=== PATIENT | male | born 1995 | race Caucasian/White ===

== ENCOUNTER 2020-06-17 06:53 | Emergency (ER) | payer MEDICAID ==
[~2020-06-17] VITALS: Ht 177.8 cm; Wt 75.0 kg
[2020-06-17] MEDS ORDERED: KETOROLAC TROMETHAMINE 30 MG/ML VIAL IVP ONE (07:30)
[2020-06-17] MEDS ORDERED: MORPHINE SULFATE 4 MG/ML SYRINGE IVP ONE (07:30)
[2020-06-17] MEDS ORDERED: SODIUM CHLORIDE 0.9% 1,000 ML IV ONE ×2 (07:30→12:00)
[2020-06-17] MEDS ORDERED: CefTRIAXone SODIUM 500 MG in DEXTROSE 5%-WATER 50 ML IV ONE (09:00)
[2020-06-17] MEDS ORDERED: AZITHROMYCIN 500 MG TABLET PO ONE (09:00)
[2020-06-17 12:20] VITALS: BP 106/72
[2020-06-17 12:54] LABS: APPEARANCE,URINE TURBID (CLEAR); BILIRUBIN,URINE NEGATIVE (NEGATIVE); GLUCOSE, URINE (UA) NEGATIVE (NEGATIVE); KETONES,URINE NEGATIVE (NEGATIVE); LEUKOCYTE ESTERASE ,URINE LARGE (NEGATIVE); NITRATE,URINE POSITIVE (NEGATIVE); OCCULT BLOOD,URINE SMALL (NEGATIVE); PROTEIN,URINE POS 1+ (NEGATIVE)
[2020-06-17 13:28] LABS: BACTERIA,URINE Few /HPF (None Seen); RBC,URINE 0-2 /HPF (0-2); SQUAMOUS EPITHELIAL CELL,UR Few /LPF (None Seen); WBC,URINE >100 /HPF (0-5)
== END 2020-06-17 12:40 | disposition home or self-care (01) ==
LOC: EMS 06:53
DX: S30.22XA Contusion of scrotum and testes, initial encounter (principal); N45.1 Epididymitis; X58.XXXA Exposure to other specified factors, initial encounter; Y93.89 Activity, other specified; Y92.89 Other specified places as the place of occurrence of the external cause; Y99.8 Other external cause status
CPT/HCPCS: 76870; 81001; 87086; 87491; 87591; 96361; 96365; 96375; 99285; A9575; J0696; J1885; J2270; J7030; J7060

== ENCOUNTER 2024-06-09 17:15 | Emergency (ER) | payer MEDICAID ==
[~2024-06-09] VITALS: Ht 180.3 cm; Wt 65.9 kg
[2024-06-09 17:17] VITALS: TEMP 100
[2024-06-09 20:29] LABS: COVID AG,FIA SOURCE NASAL SWAB
[2024-06-09] MEDS: IBUPROFEN 400 MG TABLET PO ONE (20:43)
[2024-06-09] MEDS: ACETAMINOPHEN 500 MG TABLET PO ONE (20:43)
[2024-06-09] MEDS: BENZONATATE 100 MG CAPSULE PO ONE (20:43)
[2024-06-09 20:47] VITALS: BP 113/61; PULSE 99; RESP 18; O2SAT 99
[2024-06-09 20:59] LABS: INFLUENZA TYPE A NEGATIVE FOR TYPE A (NEGATIVE); INFLUENZA TYPE B NEGATIVE FOR TYPE B (NEGATIVE); SARS-COV2 (COVID) ANTIGEN,FIA Negative (Negative)
[2024-06-09] MEDS: ALBUTEROL SULFATE HFA 90 MCG/PUFF 8 GM INHALER IH ONE (21:38)
== END 2024-06-09 22:09 | disposition home or self-care (01) ==
LOC: EMS 17:16
DX: J06.9 Acute upper respiratory infection, unspecified (principal); B97.89 Other viral agents as the cause of diseases classified elsewhere; J45.909 Unspecified asthma, uncomplicated; F17.210 Nicotine dependence, cigarettes, uncomplicated; Z91.030 Bee allergy status; Z20.822 Contact with and (suspected) exposure to COVID-19
CPT/HCPCS: 99284; 87426; 87804; 94640; J3535

== ENCOUNTER 2024-06-11 15:01 | Emergency (ER) | payer MEDICAID ==
[~2024-06-11] VITALS: Ht 180.3 cm; Wt 63.6 kg
[2024-06-11 15:17] VITALS: BP 122/66; PULSE 63; RESP 16; TEMP 99.2; O2SAT 96
[2024-06-11] MEDS ORDERED: BUPR1TAB46 SL (15:19)
[2024-06-11] MEDS: PredniSONE 20 MG TABLET PO ONE (18:32)
[2024-06-11] MEDS ORDERED: PRED-554 PO (18:55)
[2024-06-11] MEDS: ALBUTEROL SULFATE 2.5 MG/0.5 ML NEB SOLUTION NEB ONE (19:09)
[2024-06-11] MEDS: ALBUTEROL SULFATE HFA 90 MCG/PUFF 8 GM INHALER IH ONE (19:09)
[2024-06-11] MEDS: IPRATROPIUM BROMIDE 0.5 MG/2.5 ML NEB SOLUTION NEB ONE (19:10)
== END 2024-06-11 19:36 | disposition home or self-care (01) ==
LOC: EMS 15:01
DX: J45.909 Unspecified asthma, uncomplicated (principal); F12.90 Cannabis use, unspecified, uncomplicated; F15.90 Other stimulant use, unspecified, uncomplicated; F17.210 Nicotine dependence, cigarettes, uncomplicated; Z86.19 Personal history of other infectious and parasitic diseases; Z91.030 Bee allergy status
CPT/HCPCS: 99283; 94640; J7512; J3535

== ENCOUNTER 2024-10-28 16:39 | Emergency (ER) | payer MEDICAID ==
[~2024-10-28] VITALS: Ht 180.3 cm; Wt 63.6 kg
[~2024-10-28 16:39] MED LIST: BUPR1TAB46 SL; PRED-554 PO
[2024-10-28 16:44] VITALS: TEMP 97.7
[2024-10-28 19:56] VITALS: BP 119/70; PULSE 70; RESP 18; O2SAT 100
[2024-10-28 20:24] LABS: PLATELET COUNT (AUTO) 248 K/uL (150-450); RED BLOOD CELL COUNT(AUTO) 4.34 MIL/uL (4.50-5.90); RED CELL DISTRIBUTION WIDTH 14.0 % (11.5-14.5); WHITE BLOOD COUNT (AUTO) 6.4 K/uL (4.5-11.0)
[2024-10-28 20:34] LABS: CALCIUM, TOTAL 8.7 mg/dL (8.8-10.5); CREATININE 1.01 mg/dL (0.60-1.30); GLOMERULAR FILTR. RATE CALC > 60 mL/min (>60); GLUCOSE,RANDOM 118 mg/dL (70-110); SODIUM SERUM 141 mmol/L (136-145); UREA NITROGEN, BLOOD 17 mg/dL (7-18)
[2024-10-28] MEDS: LIDOCAINE 1% 10 ML VIAL SQ ONE (21:14)
[2024-10-28] MEDS ORDERED: CLIN-142 PO (21:36)
== END 2024-10-28 21:45 | disposition home or self-care (01) ==
LOC: EMS 16:39
DX: L02.413 Cutaneous abscess of right upper limb (principal); J45.909 Unspecified asthma, uncomplicated; F12.90 Cannabis use, unspecified, uncomplicated; F15.90 Other stimulant use, unspecified, uncomplicated; F17.210 Nicotine dependence, cigarettes, uncomplicated; Z79.52 Long term (current) use of systemic steroids; Z86.19 Personal history of other infectious and parasitic diseases; Z91.030 Bee allergy status; Z79.899 Other long term (current) drug therapy; W57.XXXA Bitten or stung by nonvenomous insect and other nonvenomous arthropods, initial encounter
CPT/HCPCS: 99283; 10060; 80048; 85025; 36415; J3490